=== PATIENT | female | born 1980 | race Two or more races ===

== ENCOUNTER 2024-03-18 21:36 | Inpatient (IN) | payer OTHER ==
[~2024-03-18] VITALS: Ht 154.9 cm; Wt 72.6 kg
[2024-03-18] MEDS ORDERED: CEFTRIAXONE 1GM BAG (ER ONLY) 50 ML IV ONE (22:22)
[2024-03-18] MEDS ORDERED: PANTOPRAZOLE 40 MG VIAL ONE ×2 (22:23→22:27)
[2024-03-18] MEDS ORDERED: ONDANSETRON HCL/PF 4 MG/2 ML VIAL ONE (22:23)
[2024-03-18] MEDS: CEFTRIAXONE 1GM BAG (ER ONLY) 1 GM/50 ML PIGGYBACK IV ONE (22:30)
[2024-03-18] MEDS: PANTOPRAZOLE 80 MG in IV NS 0.9% 100 ML IV ONE (22:42)
[2024-03-18] MEDS: IV NS 0.9% 1,000 ML BAG IV ONE (22:42)
[2024-03-18] MEDS: ONDANSETRON HCL/PF 4 MG/2 ML VIAL IVP ONE (22:43)
[2024-03-18 22:48] LABS: BASOPHILS # (AUTO) 0.1 K/uL (0.0-0.2); BASOPHILS % (AUTO) 1.3 % (0.0-2.0); EOSINOPHILS # (AUTO) 0.1 K/uL (0.0-0.7); EOSINOPHILS % (AUTO) 0.7 % (0.0-6.0); HEMATOCRIT 27 % (33-45); HEMOGLOBIN 9.4 g/dL (11.5-14.8); LYMPHOCYTES # (AUTO) 0.9 K/uL (0.8-4.8); LYMPHOCYTES % (AUTO) 9.3 % (20.0-44.0); MEAN CORPUSCULAR HEMOGLOBIN 39 PG (26.0-33.0); MEAN CORPUSCULAR HGB CONC 35 g/dl (31.0-36.0); MEAN CORPUSCULAR VOLUME 112 fL (82-100); MONOCYTES # (AUTO) 0.3 K/uL (0.1-1.30); MONOCYTES % (AUTO) 2.6 % (2.0-12.0); NEUTROPHILS # (AUTO) 8.6 K/uL (1.8-8.9); NEUTROPHILS % (AUTO) 86.1 % (43.0-81.0); PLATELET COUNT (AUTO) 124 K/uL (150-450); RED BLOOD CELL COUNT(AUTO) 2.42 MIL/uL (4.0-5.2); RED CELL DISTRIBUTION WIDTH 19.3 % (11.5-15.0)
[2024-03-18] MEDS: PANTOPRAZOLE 80 MG in IV NS 0.9% 500 ML IV ONE (22:56)
[2024-03-18 22:57] LABS: CALCIUM, SERUM 7.1 mg/dL (8.5-10.1); CARBON DIOXIDE 17 mmol/L (21-32); CHLORIDE 83 mmol/L (98-107); CREATININE 7.4 mg/dL (0.6-1.3); GLUCOSE 138 mg/dL (74-106); POTASSIUM 4.8 mmol/L (3.5-5.1); UREA NITROGEN, BLOOD 60 mg/dL (7-18)
[2024-03-18 23:08] LABS: SODIUM SERUM 120 mmol/L (136-145)
[2024-03-18 23:11] LABS: ALANINE AMINOTRANSFERASE 77 U/L (12-78); ALKALINE PHOSPHATASE 303 U/L (46-116); ASPARTATE AMINOTRANSFERASE 343 U/L (15-37); BILIRUBIN,DIRECT 20.9 mg/dL (0.0-0.2); BILIRUBIN,TOTAL 24.6 mg/dL (0.2-1.0); LIPASE 70 U/L (16-77); TOTAL PROTEIN, SERUM 5.5 g/dL (6.4-8.2)
[2024-03-18 23:13] LABS: ALBUMIN 1.2 g/dL (3.4-5.0)
[2024-03-18 23:49] LABS: PROTHROMBIN TIME 55.9 SECS (9.2-11.1)
[2024-03-19] VITALS (57 sets, daily range): BP systolic 77–131; BP diastolic 47–82; TEMP 97.6–98.4; O2SAT 91–100
[2024-03-19] MEDS ORDERED: Z GUARD REMEDY 4 OZ OINT TP PRN
[2024-03-19] MEDS ORDERED: ONDANSETRON HCL/PF 4 MG/2 ML VIAL IVP PRN
[2024-03-19 00:08] LABS: INR 5.91 (0.91-1.10)
[2024-03-19] MEDS: IV NS 0.9% 1,000 ML BAG IV ONE (01:26)
[2024-03-19] MEDS ORDERED: ALBUMIN 25% 100 ML IV ONE (02:06)
[2024-03-19] MEDS: ALBUMIN 25% 25 GM in PREMIX 1 EA IV SCH (02:22)
[2024-03-19 07:41] LABS: BASOPHILS % (AUTO) 0.1 % (0.0-2.0); EOSINOPHILS # (AUTO) 0.1 K/uL (0.0-0.7); EOSINOPHILS % (AUTO) 0.9 % (0.0-6.0); HEMATOCRIT 23 % (33-45); HEMOGLOBIN 8.2 g/dL (11.5-14.8); LYMPHOCYTES # (AUTO) 0.7 K/uL (0.8-4.8); MEAN CORPUSCULAR HEMOGLOBIN 39 PG (26.0-33.0); MEAN CORPUSCULAR HGB CONC 35 g/dl (31.0-36.0); MEAN CORPUSCULAR VOLUME 111 fL (82-100); MONOCYTES # (AUTO) 0.1 K/uL (0.1-1.30); NEUTROPHILS # (AUTO) 6.3 K/uL (1.8-8.9); PLATELET COUNT (AUTO) 76 K/uL (150-450); RED BLOOD CELL COUNT(AUTO) 2.09 MIL/uL (4.0-5.2); RED CELL DISTRIBUTION WIDTH 19.9 % (11.5-15.0); WHITE BLOOD COUNT (AUTO) 7.2 K/uL (4.3-11.0)
[2024-03-19 07:48] LABS: PROTHROMBIN TIME 57.2 SECS (9.2-11.1)
[2024-03-19 07:56] LABS: INR 6.07 (0.91-1.10)
[2024-03-19 08:25] LABS: THYROID STIMULATING HORMONE 1.96 uIU/mL (0.358-3.74)
[2024-03-19] MEDS ORDERED: CEFTRIAXONE 1 G in IV D5W 50 ML IV SCH (08:30)
[2024-03-19] MEDS: PHYTONADIONE INJ 10 MG/1 ML AMPUL SQ SCH (08:37)
[2024-03-19] MEDS ORDERED: PANTOPRAZOLE 40 MG VIAL IV SCH (09:00)
[2024-03-19 09:10] LABS: BILIRUBIN,TOTAL 24.3 mg/dL (0.2-1.0); CALCIUM, SERUM 6.8 mg/dL (8.5-10.1); MAGNESIUM 1.4 mg/dL (1.8-2.4); PHOSPHORUS 3.8 mg/dL (2.5-4.9); POTASSIUM 4.1 mmol/L (3.5-5.1); TOTAL PROTEIN, SERUM 5.1 g/dL (6.4-8.2)
[2024-03-19] MEDS: PANTOPRAZOLE 40 MG VIAL IV SCH (09:10)
[2024-03-19] MEDS: OCTREOTIDE 50 MCG in IV NS 0.9% 50 ML IV ONE (09:20)
[2024-03-19 09:30] LABS: CREATININE 7.5 mg/dL (0.6-1.3)
[2024-03-19 09:31] LABS: ALBUMIN 1.4 g/dL (3.4-5.0)
[2024-03-19 09:38] LABS: BILIRUBIN,DIRECT 19.1 mg/dL (0.0-0.2)
[2024-03-19] MEDS: OCTREOTIDE 1,250 MCG in IV NS 0.9% 247.5 ML IV PRN (09:41)
[2024-03-19 12:22] LABS: BAND % (MANUAL) 2 % (0.0-5.0); LYMPHOCYTES % (MANUAL) 6 % (16-48); NEUTROPHILS % (MANUAL) 89 (42-76)
[2024-03-19 12:23] LABS: ANISOCYTOSIS 1+; BASOPHILS % (MANUAL) 0 % (0.0-2.0); EOSINOPHILS % (MANUAL) 0 % (0-4); MONOCYTES % (MANUAL) 3 % (0-11.0); PLATELET ESTIMATE DECREASED; TARGET CELLS 1+
[2024-03-19 12:41] LABS: INR 7.94 (0.91-1.10); PROTHROMBIN TIME 73.5 SECS (9.2-11.1)
[2024-03-19 12:45] LABS: CALCIUM, SERUM 6.7 mg/dL (8.5-10.1); CREATININE 7.4 mg/dL (0.6-1.3); POTASSIUM 4.4 mmol/L (3.5-5.1)
[2024-03-19 12:52] LABS: PARTIAL THROMBOPLASTIN TIME 73.2 SEC (24.3-34.3)
[2024-03-19] MEDS ORDERED: NOREPINEPHRINE 8 MG in IV D5W 242 ML IV PRN (13:00)
[2024-03-19] MEDS: DEXTROSE 50%-WATER 50 ML DISP.SYRIN IVP ONE (13:09)
[2024-03-19] MEDS: IV NS 0.9% 1,000 ML BAG IV PRN (13:11)
[2024-03-19] MEDS: NOREPINEPHRINE 8 MG in IV D5W 242 ML IV PRN (13:11)
[2024-03-19 13:20] LABS: ABG BASE EXCESS -8.8 mmol/L (-2.0-2.0); ABG OXYGEN SATURATION 95.6 % (92.0-98.5); ABG PCO2 24.4 mmHg (35.0-45.0); ABG PH 7.402 (7.350-7.450); ABG TOTAL HEMOGLOBIN 7.8 G/dL (12.0-16.0); AaDO2 111.6 mmHg; COHb 1.3 % (0.5-1.5); MetHb 0.1 % (0.0-1.5); O2Hb 94.3 % (94.0-97.0); SITE, ABG Left Radial; VENT MODE, BG 3L NC
[2024-03-19] MEDS ORDERED: INSULIN REGULAR, HUMAN 100 UNIT/ML 3 ML VIAL SQ PRN (14:30)
[2024-03-19] MEDS ORDERED: DEXTROSE 50%-WATER 50 ML DISP.SYRIN IV PRN (14:30)
[2024-03-19] MEDS: BLOOD SUGAR DIAGNOSTIC 1 EACH STRIP IN SCH (15:10)
[2024-03-19] MEDS: SODIUM BICARBONATE SYR 50 MEQ/50 ML DISP.SYRIN IV ONE (15:15)
[2024-03-19 15:52] LABS: BASOPHILS % (AUTO) 0.1 % (0.0-2.0); EOSINOPHILS # (AUTO) 0.1 K/uL (0.0-0.7); EOSINOPHILS % (AUTO) 1.3 % (0.0-6.0); LYMPHOCYTES # (AUTO) 0.6 K/uL (0.8-4.8); LYMPHOCYTES % (AUTO) 5.8 % (20.0-44.0); MEAN CORPUSCULAR HEMOGLOBIN 39 PG (26.0-33.0); MEAN CORPUSCULAR HGB CONC 35 g/dl (31.0-36.0); MEAN CORPUSCULAR VOLUME 111 fL (82-100); MONOCYTES # (AUTO) 0.2 K/uL (0.1-1.30); MONOCYTES % (AUTO) 1.7 % (2.0-12.0); NEUTROPHILS # (AUTO) 9.1 K/uL (1.8-8.9); NEUTROPHILS % (AUTO) 91.1 % (43.0-81.0); PLATELET COUNT (AUTO) 76 K/uL (150-450); RED CELL DISTRIBUTION WIDTH 19.4 % (11.5-15.0)
[2024-03-19 16:36] LABS: HEMATOCRIT 20 % (33-45); RED BLOOD CELL COUNT(AUTO) 1.81 MIL/uL (4.0-5.2)
[2024-03-19] MEDS ORDERED: ANESTHESIA TRAY IN PYXIS 1 EA TRAY MC ONE (16:57)
[2024-03-19 18:19] LABS: ANISOCYTOSIS 1+; HYPOCHROMASIA 1+; LYMPHOCYTES % (MANUAL) 4 % (16-48); MONOCYTES % (MANUAL) 1 % (0-11.0); NEUTROPHILS % (MANUAL) 95 (42-76); PLATELET ESTIMATE DECREASED
[2024-03-19 18:20] LABS: TARGET CELLS 2+
[2024-03-19] MEDS ORDERED: MIDAZOLAM HCL 2 MG/2ML VIAL ONE (19:07)
[2024-03-19] MEDS ORDERED: ALBUTEROL FS 2.5 MG/3 ML VIAL.NEB ONE (19:12)
[2024-03-19] MEDS ORDERED: SUCCINYLCHOLINE CHLORIDE 20 MG/ML VIAL ONE (19:20)
[2024-03-19] MEDS: PROPOFOL 100 ML IV PRN (19:44)
[2024-03-19 21:31] LABS: ABG BASE EXCESS -10.2 mmol/L (-2.0-2.0); ABG PCO2 29.1 mmHg (35.0-45.0); ABG PH 7.324 (7.350-7.450); ABG PO2 151.2 mmHg (75.0-100.0); ABG TOTAL HEMOGLOBIN 8.3 G/dL (12.0-16.0); AaDO2 532.7 mmHg; COHb 1.1 % (0.5-1.5); O2Hb 97.9 % (94.0-97.0); PEEP,BG 5 cm H2O; SITE, ABG Right Radial
[2024-03-19] MEDS: CELLULOSE,OXIDIZED 1 EACH EACH MC ONE (21:35)
[2024-03-19] MEDS: CEFTRIAXONE 1 G in IV D5W 50 ML IV SCH (21:56)
[2024-03-20] VITALS (96 sets, daily range): BP systolic 70–112; BP diastolic 40–88; TEMP 97.2–98.8; O2SAT 92–100
[2024-03-20] MEDS: IV NS 0.9% 1,000 ML IV PRN (02:17)
[2024-03-20 05:45] LABS: BASOPHILS % (AUTO) 0.3 % (0.0-2.0); EOSINOPHILS # (AUTO) 0.1 K/uL (0.0-0.7); LYMPHOCYTES # (AUTO) 0.6 K/uL (0.8-4.8); LYMPHOCYTES % (AUTO) 7.5 % (20.0-44.0); MEAN CORPUSCULAR HEMOGLOBIN 40 PG (26.0-33.0); MEAN CORPUSCULAR HGB CONC 36 g/dl (31.0-36.0); MEAN CORPUSCULAR VOLUME 112 fL (82-100); MONOCYTES # (AUTO) 0.2 K/uL (0.1-1.30); MONOCYTES % (AUTO) 2.4 % (2.0-12.0); NEUTROPHILS # (AUTO) 6.9 K/uL (1.8-8.9); NEUTROPHILS % (AUTO) 88.8 % (43.0-81.0); PLATELET COUNT (AUTO) 62 K/uL (150-450); RED CELL DISTRIBUTION WIDTH 19.3 % (11.5-15.0); WHITE BLOOD COUNT (AUTO) 7.7 K/uL (4.3-11.0)
[2024-03-20 05:57] LABS: ALBUMIN 2.4 g/dL (3.4-5.0); BILIRUBIN,TOTAL 24.3 mg/dL (0.2-1.0); CALCIUM, SERUM 7.2 mg/dL (8.5-10.1); CREATININE 4.4 mg/dL (0.6-1.3); MAGNESIUM 1.7 mg/dL (1.8-2.4); PHOSPHORUS 2.7 mg/dL (2.5-4.9); POTASSIUM 3.5 mmol/L (3.5-5.1); TOTAL PROTEIN, SERUM 5.4 g/dL (6.4-8.2)
[2024-03-20 06:01] LABS: RED BLOOD CELL COUNT(AUTO) 1.69 MIL/uL (4.0-5.2)
[2024-03-20 06:03] LABS: HEMOGLOBIN 6.8 g/dL (11.5-14.8)
[2024-03-20 06:04] LABS: HEMATOCRIT 19 % (33-45)
[2024-03-20] MEDS: BLOOD SUGAR DIAGNOSTIC 1 EACH STRIP IN SCH (06:14)
[2024-03-20 06:19] LABS: BAND % (MANUAL) 5 % (0.0-5.0); LYMPHOCYTES % (MANUAL) 12 % (16-48); MONOCYTES % (MANUAL) 1 % (0-11.0); NEUTROPHILS % (MANUAL) 82 (42-76)
[2024-03-20] MEDS: FENTANYL CITRAT IV 2,500 MCG in IV NS 0.9% 200 ML IV PRN (10:56)
[2024-03-20] MEDS: Magnesium 1GM/D5W 100ML PREMIX 100 ML IV SCH (12:25)
[2024-03-20] MEDS ORDERED: MIDAZOLAM HCL 100 MG in IV NS 0.9% 80 ML IV PRN ×2 (13:00→20:30)
[2024-03-20] MEDS: MIDAZOLAM HCL 100 MG in IV NS 0.9% 80 ML IV PRN ×2 (14:00→21:18)
[2024-03-20] MEDS: LACTULOSE UDC 200 G in SODIUM CHLORIDE IRRIG SOLUTION 400 ML IR SCH (14:34)
[2024-03-20] MEDS: LACTULOSE 10 G/15 ML UDC (PYXIS) NG SCH (16:30)
[2024-03-20] MEDS ORDERED: MIDAZOLAM HCL 100 MG in IV NS 0.9% 80 ML IV SCH (20:30)
[2024-03-20 22:05] LABS: BASOPHILS % (AUTO) 0.2 % (0.0-2.0); EOSINOPHILS # (AUTO) 0.1 K/uL (0.0-0.7); HEMATOCRIT 27 % (33-45); HEMOGLOBIN 9.3 g/dL (11.5-14.8); LYMPHOCYTES # (AUTO) 0.6 K/uL (0.8-4.8); LYMPHOCYTES % (AUTO) 4.4 % (20.0-44.0); MEAN CORPUSCULAR HEMOGLOBIN 36 PG (26.0-33.0); MEAN CORPUSCULAR HGB CONC 34 g/dl (31.0-36.0); MEAN CORPUSCULAR VOLUME 107 fL (82-100); MONOCYTES # (AUTO) 0.3 K/uL (0.1-1.30); MONOCYTES % (AUTO) 2.6 % (2.0-12.0); NEUTROPHILS # (AUTO) 11.5 K/uL (1.8-8.9); NEUTROPHILS % (AUTO) 91.8 % (43.0-81.0); PLATELET COUNT (AUTO) 58 K/uL (150-450); RED BLOOD CELL COUNT(AUTO) 2.57 MIL/uL (4.0-5.2); RED CELL DISTRIBUTION WIDTH 22.8 % (11.5-15.0); WHITE BLOOD COUNT (AUTO) 12.6 K/uL (4.3-11.0)
[2024-03-20 23:39] LABS: BAND % (MANUAL) 5 % (0.0-5.0); EOSINOPHILS % (MANUAL) 1 % (0-4); LYMPHOCYTES % (MANUAL) 7 % (16-48); MONOCYTES % (MANUAL) 2 % (0-11.0); NEUTROPHILS % (MANUAL) 85 (42-76)
[2024-03-21] VITALS (75 sets, daily range): BP systolic 67–128; BP diastolic 39–100; TEMP 97.6–98.9; O2SAT 93–100
[2024-03-21 05:02] LABS: BASOPHILS % (AUTO) 0.2 % (0.0-2.0); EOSINOPHILS # (AUTO) 0.1 K/uL (0.0-0.7); EOSINOPHILS % (AUTO) 0.9 % (0.0-6.0); HEMATOCRIT 29 % (33-45); HEMOGLOBIN 9.8 g/dL (11.5-14.8); LYMPHOCYTES # (AUTO) 0.8 K/uL (0.8-4.8); LYMPHOCYTES % (AUTO) 5.9 % (20.0-44.0); MEAN CORPUSCULAR HEMOGLOBIN 36 PG (26.0-33.0); MEAN CORPUSCULAR HGB CONC 34 g/dl (31.0-36.0); MEAN CORPUSCULAR VOLUME 104 fL (82-100); MONOCYTES # (AUTO) 0.2 K/uL (0.1-1.30); MONOCYTES % (AUTO) 1.7 % (2.0-12.0); NEUTROPHILS # (AUTO) 11.9 K/uL (1.8-8.9); NEUTROPHILS % (AUTO) 91.3 % (43.0-81.0); PLATELET COUNT (AUTO) 62 K/uL (150-450); RED BLOOD CELL COUNT(AUTO) 2.74 MIL/uL (4.0-5.2); RED CELL DISTRIBUTION WIDTH 22.1 % (11.5-15.0)
[2024-03-21 05:12] LABS: CREATININE 5.6 mg/dL (0.6-1.3); MAGNESIUM 2.1 mg/dL (1.8-2.4); PHOSPHORUS 3.4 mg/dL (2.5-4.9); POTASSIUM 3.5 mmol/L (3.5-5.1)
[2024-03-21 05:24] LABS: ALBUMIN 2.2 g/dL (3.4-5.0); BAND % (MANUAL) 3 % (0.0-5.0); BILIRUBIN,DIRECT 22.7 mg/dL (0.0-0.2); BILIRUBIN,TOTAL 26.4 mg/dL (0.2-1.0); LYMPHOCYTES % (MANUAL) 6 % (16-48); MONOCYTES % (MANUAL) 2 % (0-11.0); NEUTROPHILS % (MANUAL) 89 (42-76); TOTAL PROTEIN, SERUM 5.5 g/dL (6.4-8.2)
[2024-03-21 06:07] LABS: HEPATITIS B SURFACE AB Reactive (.)
[2024-03-21] MEDS: FENTANYL CITRAT IV 2,500 MCG in IV NS 0.9% 250 ML IV PRN (07:46)
[2024-03-21 12:13] LABS: INR 3.49 (0.91-1.10); PROTHROMBIN TIME 34.1 SECS (9.2-11.1)
[2024-03-21] MEDS: NOREPINEPHRINE 32 MG in IV NS 0.9% 218 ML IV PRN (13:23)
[2024-03-21 19:17] LABS: PREGNANCY TEST URINE QUAL NEGATIVE (NEGATIVE)
[2024-03-21] MEDS ORDERED: DEXTROSE 50%-WATER 50 ML DISP.SYRIN ONE (21:39)
[2024-03-21] MEDS: DEXTROSE 50%-WATER 50 ML DISP.SYRIN IVP ONE (22:03)
[2024-03-21] MEDS ORDERED: IV D5/0.45 NACL 1,000 ML IV PRN (22:30)
[2024-03-21] MEDS: IV D5/ 0.9% NACL 1,000 ML IV PRN (22:34)
[2024-03-22] VITALS (88 sets, daily range): BP systolic 65–162; BP diastolic 44–95; TEMP 97.6–99.5; O2SAT 90–100
[2024-03-22 03:06] LABS: HBSAG SCREEN Negative (Negative); HEPATITIS A AB, IgM Negative (Negative); HEPATITIS B CORE AB, IgM Negative (Negative)
[2024-03-22 05:13] LABS: BASOPHILS % (AUTO) 0.1 % (0.0-2.0); EOSINOPHILS # (AUTO) 0.2 K/uL (0.0-0.7); EOSINOPHILS % (AUTO) 1.2 % (0.0-6.0); HEMATOCRIT 29 % (33-45); HEMOGLOBIN 10.1 g/dL (11.5-14.8); LYMPHOCYTES # (AUTO) 0.9 K/uL (0.8-4.8); LYMPHOCYTES % (AUTO) 4.5 % (20.0-44.0); MEAN CORPUSCULAR HEMOGLOBIN 36 PG (26.0-33.0); MEAN CORPUSCULAR HGB CONC 35 g/dl (31.0-36.0); MEAN CORPUSCULAR VOLUME 103 fL (82-100); MONOCYTES # (AUTO) 0.5 K/uL (0.1-1.30); MONOCYTES % (AUTO) 2.2 % (2.0-12.0); NEUTROPHILS # (AUTO) 18.9 K/uL (1.8-8.9); PLATELET COUNT (AUTO) 53 K/uL (150-450); RED BLOOD CELL COUNT(AUTO) 2.83 MIL/uL (4.0-5.2); RED CELL DISTRIBUTION WIDTH 22.7 % (11.5-15.0); WHITE BLOOD COUNT (AUTO) 20.6 K/uL (4.3-11.0)
[2024-03-22 05:31] LABS: MAGNESIUM 1.8 mg/dL (1.8-2.4); PHOSPHORUS 2.3 mg/dL (2.5-4.9)
[2024-03-22 05:47] LABS: ALBUMIN 1.9 g/dL (3.4-5.0); BILIRUBIN,DIRECT 21.2 mg/dL (0.0-0.2); CALCIUM, SERUM 7.1 mg/dL (8.5-10.1); CREATININE 4.1 mg/dL (0.6-1.3); POTASSIUM 2.9 mmol/L (3.5-5.1); TOTAL PROTEIN, SERUM 5.4 g/dL (6.4-8.2)
[2024-03-22 07:26] LABS: ANISOCYTOSIS 1+; BAND % (MANUAL) 4 % (0.0-5.0); BASOPHILS % (MANUAL) 0 % (0.0-2.0); EOSINOPHILS % (MANUAL) 0 % (0-4); LYMPHOCYTES % (MANUAL) 6 % (16-48); MONOCYTES % (MANUAL) 3 % (0-11.0); NEUTROPHILS % (MANUAL) 87 (42-76); PLATELET ESTIMATE DECREASED
[2024-03-22] MEDS: NEPRO 1,000 ML BOTTLE GT PRN (07:43)
[2024-03-22] MEDS ORDERED: POTASSIUM CHLORIDE 10 MEQ/50 ML PREMIXED IVPB FOR PERIPHERAL LINE IV ONE (09:00)
[2024-03-22] MEDS: POTASSIUM CL. PREMIX PERIPHER. 50 ML IV SCH (09:20)
[2024-03-22] MEDS: CEFEPIME 1 GM in IV D5W 50 ML IV SCH (15:58)
[2024-03-22] MEDS: Sodium Phosphate 15 MMOL in IV NS 0.9% 245 ML IV SCH (16:02)
[2024-03-22] MEDS ORDERED: CEFEPIME 1 GM in IV D5W 50 ML IV SCH (18:00)
[2024-03-22] MEDS: VANCOMYCIN 1 GM in IV D5W 250ml IV ONE (19:49)
[2024-03-22] MEDS ORDERED: VANCOMYCIN 1 GM in IV D5W 250ml IV ONE (20:00)
[2024-03-22] MEDS: IV NS 0.9% 250 ML IV PRN (20:43)
[2024-03-22] MEDS ORDERED: DEXTROSE 50%-WATER 50 ML DISP.SYRIN ONE (21:05)
[2024-03-22] MEDS: DEXTROSE 50%-WATER 50 ML DISP.SYRIN IVP PRN (21:20)
[2024-03-23] VITALS (97 sets, daily range): BP systolic 79–129; BP diastolic 53–99; TEMP 98.1–100.5; O2SAT 89–99
[2024-03-23] MEDS: PHENYLEPHRINE 50 MG in IV NS 0.9% 245 ML IV PRN (01:32)
[2024-03-23 04:55] LABS: BASOPHILS # (AUTO) 0.1 K/uL (0.0-0.2); BASOPHILS % (AUTO) 0.2 % (0.0-2.0); EOSINOPHILS # (AUTO) 0.3 K/uL (0.0-0.7); EOSINOPHILS % (AUTO) 1.5 % (0.0-6.0); HEMATOCRIT 30 % (33-45); HEMOGLOBIN 10.2 g/dL (11.5-14.8); LYMPHOCYTES # (AUTO) 1.2 K/uL (0.8-4.8); LYMPHOCYTES % (AUTO) 5.2 % (20.0-44.0); MEAN CORPUSCULAR HEMOGLOBIN 35 PG (26.0-33.0); MEAN CORPUSCULAR HGB CONC 34 g/dl (31.0-36.0); MEAN CORPUSCULAR VOLUME 103 fL (82-100); MONOCYTES # (AUTO) 0.5 K/uL (0.1-1.30); MONOCYTES % (AUTO) 2.4 % (2.0-12.0); NEUTROPHILS % (AUTO) 90.7 % (43.0-81.0); RED BLOOD CELL COUNT(AUTO) 2.88 MIL/uL (4.0-5.2); RED CELL DISTRIBUTION WIDTH 22.7 % (11.5-15.0); WHITE BLOOD COUNT (AUTO) 23.2 K/uL (4.3-11.0)
[2024-03-23 04:57] LABS: PLATELET COUNT (AUTO) 39 K/uL (150-450)
[2024-03-23 05:17] LABS: ALBUMIN 1.6 g/dL (3.4-5.0); BILIRUBIN,TOTAL 24.9 mg/dL (0.2-1.0); CALCIUM, SERUM 6.9 mg/dL (8.5-10.1); CREATININE 3.3 mg/dL (0.6-1.3); MAGNESIUM 1.7 mg/dL (1.8-2.4); PHOSPHORUS 2.6 mg/dL (2.5-4.9); POTASSIUM 3.2 mmol/L (3.5-5.1)
[2024-03-23 06:16] LABS: BAND % (MANUAL) 4 % (0.0-5.0); LYMPHOCYTES % (MANUAL) 3 % (16-48); NEUTROPHILS % (MANUAL) 93 (42-76)
[2024-03-23 06:17] LABS: ANISOCYTOSIS 1+; HYPOCHROMASIA 1+; PLATELET ESTIMATE DECREASED; TEAR DROP CELLS 1+
[2024-03-23 06:18] LABS: OVALOCYTES 1+
[2024-03-23] MEDS: POTASSIUM CL. PREMIX PERIPHER. 50 ML IV SCH (09:15)
[2024-03-23] MEDS: Sodium Chloride 154 MEQ in IV 10% DEXTROSE 1,000 ML IV SCH (10:08)
[2024-03-23] MEDS: LACTULOSE UDC 200 G in SODIUM CHLORIDE IRRIG SOLUTION 400 ML IR SCH (10:26)
[2024-03-23] MEDS ORDERED: LACTULOSE 10 G/15 ML UDC (PYXIS) PR SCH (10:30)
[2024-03-23] MEDS ORDERED: Magnesium 1GM/D5W 100ML PREMIX 100 ML IV SCH (12:00)
[2024-03-23] MEDS: Magnesium 1GM/D5W 100ML PREMIX PIGGYBACK IV ONE (12:24)
[2024-03-23] MEDS: METRONIDAZOLE 500MG/ NS 100ML 500 MG in PREMIX 1 EA IV SCH (15:43)
[2024-03-24] VITALS (99 sets, daily range): BP systolic 71–99; BP diastolic 39–85; TEMP 97.5–99; O2SAT 69–100
[2024-03-24 04:46] LABS: BASOPHILS # (AUTO) 0.1 K/uL (0.0-0.2); BASOPHILS % (AUTO) 0.3 % (0.0-2.0); EOSINOPHILS # (AUTO) 0.2 K/uL (0.0-0.7); EOSINOPHILS % (AUTO) 0.9 % (0.0-6.0); HEMATOCRIT 28 % (33-45); HEMOGLOBIN 9.2 g/dL (11.5-14.8); LYMPHOCYTES # (AUTO) 1.1 K/uL (0.8-4.8); LYMPHOCYTES % (AUTO) 5.3 % (20.0-44.0); MEAN CORPUSCULAR HEMOGLOBIN 35 PG (26.0-33.0); MEAN CORPUSCULAR HGB CONC 33 g/dl (31.0-36.0); MEAN CORPUSCULAR VOLUME 107 fL (82-100); MONOCYTES # (AUTO) 0.5 K/uL (0.1-1.30); MONOCYTES % (AUTO) 2.4 % (2.0-12.0); NEUTROPHILS # (AUTO) 19.9 K/uL (1.8-8.9); NEUTROPHILS % (AUTO) 91.1 % (43.0-81.0); WHITE BLOOD COUNT (AUTO) 21.8 K/uL (4.3-11.0)
[2024-03-24 04:48] LABS: PLATELET COUNT (AUTO) 47 K/uL (150-450)
[2024-03-24 04:57] LABS: CALCIUM, SERUM 6.4 mg/dL (8.5-10.1); CREATININE 3.9 mg/dL (0.6-1.3); POTASSIUM 3.8 mmol/L (3.5-5.1)
[2024-03-24 05:05] LABS: PHOSPHORUS 3.8 mg/dL (2.5-4.9)
[2024-03-24 05:09] LABS: ALBUMIN 1.5 g/dL (3.4-5.0); BILIRUBIN,DIRECT 19.2 mg/dL (0.0-0.2); BILIRUBIN,TOTAL 23.5 mg/dL (0.2-1.0); TOTAL PROTEIN, SERUM 4.5 g/dL (6.4-8.2)
[2024-03-24 07:34] LABS: BAND % (MANUAL) 4 % (0.0-5.0); BASOPHILS % (MANUAL) 0 % (0.0-2.0); EOSINOPHILS % (MANUAL) 2 % (0-4); LYMPHOCYTES % (MANUAL) 5 % (16-48); MONOCYTES % (MANUAL) 3 % (0-11.0); NEUTROPHILS % (MANUAL) 86 (42-76)
[2024-03-24 07:35] LABS: ANISOCYTOSIS 2+; PLATELET ESTIMATE DECREASED
[2024-03-24] MEDS: VASOPRESSIN INJ 40 UNIT in IV NS 0.9% 38 ML IV PRN (07:40)
[2024-03-24] MEDS: PHENYLEPHRINE 100 MG in IV NS 0.9% 240 ML IV PRN (08:33)
[2024-03-24] MEDS: SODIUM BICARBONATE SYR 50 MEQ/50 ML DISP.SYRIN IV ONE (09:45)
[2024-03-24] MEDS: HYDROCORTISONE SOD SUCCINATE 100 MG/2 ML VIAL IV SCH (15:35)
[2024-03-24] MEDS: Sodium Bicarbonate 100 MEQ in IV D5 / 0.2% NACL 1,000 ML IV SCH (16:05)
[2024-03-25] VITALS (94 sets, daily range): BP systolic 81–97; BP diastolic 36–57; TEMP 98.8–99.9; O2SAT 73–96
[2024-03-25 05:56] LABS: HIV-1 p24 ANTIGEN NON REACTIVE (NONREACTIVE); HIV-1/2 ANTIBODY NON REACTIVE (NONREACTIVE)
[2024-03-25 06:56] LABS: BASOPHILS % (AUTO) 0.2 % (0.0-2.0); EOSINOPHILS # (AUTO) 0.3 K/uL (0.0-0.7); EOSINOPHILS % (AUTO) 1.5 % (0.0-6.0); HEMATOCRIT 27 % (33-45); HEMOGLOBIN 8.4 g/dL (11.5-14.8); LYMPHOCYTES # (AUTO) 0.9 K/uL (0.8-4.8); LYMPHOCYTES % (AUTO) 4.2 % (20.0-44.0); MEAN CORPUSCULAR HEMOGLOBIN 34 PG (26.0-33.0); MEAN CORPUSCULAR HGB CONC 31 g/dl (31.0-36.0); MEAN CORPUSCULAR VOLUME 110 fL (82-100); MONOCYTES # (AUTO) 0.2 K/uL (0.1-1.30); MONOCYTES % (AUTO) 0.8 % (2.0-12.0); NEUTROPHILS # (AUTO) 20.5 K/uL (1.8-8.9); NEUTROPHILS % (AUTO) 93.3 % (43.0-81.0); RED BLOOD CELL COUNT(AUTO) 2.45 MIL/uL (4.0-5.2); RED CELL DISTRIBUTION WIDTH 23.7 % (11.5-15.0)
[2024-03-25 07:11] LABS: PLATELET COUNT (AUTO) 14 K/uL (150-450)
[2024-03-25 07:25] LABS: CREATININE 4.5 mg/dL (0.6-1.3); POTASSIUM 4.3 mmol/L (3.5-5.1)
[2024-03-25 08:41] LABS: MAGNESIUM 1.8 mg/dL (1.8-2.4)
[2024-03-25 09:01] LABS: CALCIUM, SERUM 5.8 mg/dL (8.5-10.1)
[2024-03-25 09:14] LABS: BAND % (MANUAL) 3 % (0.0-5.0); BASOPHILS % (MANUAL) 0 % (0.0-2.0); EOSINOPHILS % (MANUAL) 0 % (0-4); LYMPHOCYTES % (MANUAL) 3 % (16-48); MONOCYTES % (MANUAL) 1 % (0-11.0); NEUTROPHILS % (MANUAL) 93 (42-76); PLATELET ESTIMATE DECREASED
[2024-03-25 09:15] LABS: ANISOCYTOSIS 1+
[2024-03-25 09:21] LABS: BILIRUBIN,DIRECT 18.8 mg/dL (0.0-0.2); BILIRUBIN,TOTAL 22.8 mg/dL (0.2-1.0); TOTAL PROTEIN, SERUM 4.3 g/dL (6.4-8.2)
[2024-03-25 09:41] LABS: ALBUMIN 1.3 g/dL (3.4-5.0)
[2024-03-25] MEDS ORDERED: DOSE PER PHARMACY MICAFUNGIN 1 EA XX PRN (10:00)
[2024-03-25] MEDS: MICAFUNGIN SODIUM 100 MG in IV NS 0.9% 100 ML IV SCH (10:58)
[2024-03-25 16:55] LABS: ABG OXYGEN SATURATION 91.2 % (94.0-98.0); ABG PCO2 30.8 mmHg (32.0-45.0); ABG PH 7.125 (7.350-7.450); ABG PO2 75.5 mmHg (83.0-108.0); ABG TOTAL HEMOGLOBIN 9.6 G/dL (12.0-16.0); AaDO2 246.4 mmHg; COHb 0.5 % (0.5-1.5); O2Hb 90.7 % (94.0-97.0); SITE, ABG Other
[2024-03-25 16:58] LABS: ABG BASE EXCESS -18.2 mmol/L (-2.0-3.0); ABG OXYGEN SATURATION 82.5 % (94.0-98.0); ABG PCO2 30.7 mmHg (32.0-45.0); ABG PH 7.119 (7.350-7.450); ABG PO2 54.1 mmHg (83.0-108.0); ABG TOTAL HEMOGLOBIN 9.3 G/dL (12.0-16.0); COHb 0.5 % (0.5-1.5); MetHb 0.1 % (0.0-1.5); SITE, ABG Other
[2024-03-26] VITALS (89 sets, daily range): BP systolic 31–105; BP diastolic 18–81; TEMP 99.1–99.8; O2SAT 73–98
[2024-03-26 04:31] LABS: CREATININE 4.6 mg/dL (0.6-1.3); MAGNESIUM 1.7 mg/dL (1.8-2.4); PHOSPHORUS 5.5 mg/dL (2.5-4.9); POTASSIUM 4.6 mmol/L (3.5-5.1)
[2024-03-26 05:56] LABS: BILIRUBIN,DIRECT 17.8 mg/dL (0.0-0.2); BILIRUBIN,TOTAL 21.6 mg/dL (0.2-1.0); TOTAL PROTEIN, SERUM 3.8 g/dL (6.4-8.2)
[2024-03-26 06:01] LABS: ALBUMIN 1.2 g/dL (3.4-5.0)
[2024-03-26 06:58] LABS: BASOPHILS % (AUTO) 0.3 % (0.0-2.0); EOSINOPHILS % (AUTO) 0.1 % (0.0-6.0); HEMATOCRIT 24 % (33-45); HEMOGLOBIN 7.5 g/dL (11.5-14.8); LYMPHOCYTES # (AUTO) 0.7 K/uL (0.8-4.8); LYMPHOCYTES % (AUTO) 4.3 % (20.0-44.0); MEAN CORPUSCULAR HEMOGLOBIN 35 PG (26.0-33.0); MEAN CORPUSCULAR HGB CONC 32 g/dl (31.0-36.0); MEAN CORPUSCULAR VOLUME 112 fL (82-100); MONOCYTES # (AUTO) 0.1 K/uL (0.1-1.30); MONOCYTES % (AUTO) 0.9 % (2.0-12.0); NEUTROPHILS # (AUTO) 16.3 K/uL (1.8-8.9); NEUTROPHILS % (AUTO) 94.4 % (43.0-81.0); RED BLOOD CELL COUNT(AUTO) 2.14 MIL/uL (4.0-5.2); RED CELL DISTRIBUTION WIDTH 24.2 % (11.5-15.0); WHITE BLOOD COUNT (AUTO) 17.2 K/uL (4.3-11.0)
[2024-03-26 07:30] LABS: PLATELET COUNT (AUTO) 13 K/uL (150-450)
[2024-03-26 11:24] LABS: ANISOCYTOSIS 2+; BASOPHILS % (MANUAL) 0 % (0.0-2.0); EOSINOPHILS % (MANUAL) 0 % (0-4); LYMPHOCYTES % (MANUAL) 5 % (16-48); MONOCYTES % (MANUAL) 2 % (0-11.0); NEUTROPHILS % (MANUAL) 93 (42-76); PLATELET ESTIMATE DECREASED
[2024-03-26 11:26] LABS: TEAR DROP CELLS 1+
[2024-03-26] MEDS: VANCOMYCIN POST DIALYSIS 500MG IV PRN (14:59)
[2024-03-26] MEDS: MORPHINE SULFATE INJ 4 MG/ML DISP.SYRIN IV PRN (17:45)
== END 2024-03-26 21:18 | DRG 280 ==
LOC: ER 22:06 → TELE-TD 03-19 00:05 → ICU 03-19 12:25 → UNDODISIN 03-27 01:12
PROVIDERS: ADMIT Nurse Practitioner Family; ATTEND Student in an Organized Health Care Education/Training Program
PROC: 5A1955Z Respiratory Ventilation, Greater than 96 Consecutive Hours (ICD-10-PCS; principal; 2024-03-19)
PROC: 0BH17EZ Insertion of Endotracheal Airway into Trachea, Via Natural or Artificial Opening (ICD-10-PCS; 2024-03-19)
PROC: 06L38CZ Occlusion of Esophageal Vein with Extraluminal Device, Via Natural or Artificial Opening Endoscopic (ICD-10-PCS; 2024-03-19)
PROC: 30233K1 Transfusion of Nonautologous Frozen Plasma into Peripheral Vein, Percutaneous Approach (ICD-10-PCS; 2024-03-19)
PROC: 5A1D70Z Performance of Urinary Filtration, Intermittent, Less than 6 Hours Per Day (ICD-10-PCS; 2024-03-19)
PROC: 02HV33Z Insertion of Infusion Device into Superior Vena Cava, Percutaneous Approach (ICD-10-PCS; 2024-03-19)
PROC: B548ZZA Ultrasonography of Superior Vena Cava, Guidance (ICD-10-PCS; 2024-03-19)
PROC: 30233N1 Transfusion of Nonautologous Red Blood Cells into Peripheral Vein, Percutaneous Approach (ICD-10-PCS; 2024-03-20)
PROC: 06HY33Z Insertion of Infusion Device into Lower Vein, Percutaneous Approach (ICD-10-PCS; 2024-03-20)
PROC: 30233R1 Transfusion of Nonautologous Platelets into Peripheral Vein, Percutaneous Approach (ICD-10-PCS; 2024-03-21)
DX: K70.30 Alcoholic cirrhosis of liver without ascites (principal); K70.40 Alcoholic hepatic failure without coma; A41.89 Other specified sepsis; J96.90 Respiratory failure, unspecified, unspecified whether with hypoxia or hypercapnia; K76.7 Hepatorenal syndrome; J95.851 Ventilator associated pneumonia; E43 Unspecified severe protein-calorie malnutrition; N17.0 Acute kidney failure with tubular necrosis; U07.1 COVID-19; Z51.5 Encounter for palliative care; R65.21 Severe sepsis with septic shock; K65.2 Spontaneous bacterial peritonitis; G92.8 Other toxic encephalopathy; I85.01 Esophageal varices with bleeding; D68.4 Acquired coagulation factor deficiency; D69.59 Other secondary thrombocytopenia; E88.09 Other disorders of plasma-protein metabolism, not elsewhere classified; E87.1 Hypo-osmolality and hyponatremia; K29.70 Gastritis, unspecified, without bleeding; D64.9 Anemia, unspecified; R73.9 Hyperglycemia, unspecified; E83.42 Hypomagnesemia; E86.1 Hypovolemia; M89.8X9 Other specified disorders of bone, unspecified site; Z66 Do not resuscitate; Z59.00 Homelessness unspecified; K70.10 Alcoholic hepatitis without ascites; R16.2 Hepatomegaly with splenomegaly, not elsewhere classified; E87.20 Acidosis, unspecified; F10.10 Alcohol abuse, uncomplicated; Y84.8 Other medical procedures as the cause of abnormal reaction of the patient, or of later complication, without mention of misadventure at the time of the procedure; Y92.230 Patient room in hospital as the place of occurrence of the external cause; Z68.30 Body mass index [BMI] 30.0-30.9, adult
CPT/HCPCS: 31720; 36415; 36569; 36600; 71045-TC; 76700-TC; 80048-TC; 80053-TC; 80076-TC; 80202-TC; 82140-TC; 82550-TC; 82803-TC; 82962-TC; 83690-TC; 83735-TC; 83880; 83970; 84100-TC; 84155; 84165; 84443-TC; 84478-TC; 84484-TC; 84702-TC; 84703-TC; 85025-TC; 85027-TC; 85610-TC; 85730-TC; 86706; 86850-TC; 87040-TC; 87081-TC; 87340; 87806; 90935-TC; 93307-TC; 93880-TC; 94002-TC; 94003-TC; 94760-TC; 94762-TC; 94799-TC; 99082-TC; A4216; A4217; A4223; A6403; A9563; G0378; J0330; J0692; J0696; J1720; J2248; J2250; J2270; J2354; J2405; J2470; J2704; J2765; J3010; J3370; J3430; J3475; J3480; J3490; J7030; J7042; J7050; J7060; P9016; P9017; P9034; P9047